=== PATIENT | female | born 1990 | race Caucasian/White ===

== ENCOUNTER 2019-01-24 17:23 | Emergency (ER) | payer MEDICAID ==
[~2019-01-24] VITALS: Ht 162.6 cm; Wt 65.0 kg
[~2019-01-24 17:23] MED LIST: COM10T PO; IBUP-1984 PO
[2019-01-24 17:30] VITALS: BP 136/80
== END 2019-01-24 17:59 | disposition home or self-care (01) ==
LOC: ER 17:25
DX: O26.891 Other specified pregnancy related conditions, first trimester (principal); M79.672 Pain in left foot; F15.90 Other stimulant use, unspecified, uncomplicated; Z98.890 Other specified postprocedural states; Z79.899 Other long term (current) drug therapy; Z3A.13 13 weeks gestation of pregnancy
CPT/HCPCS: 99282

== ENCOUNTER → 2024-03-08 | Outpatient (CLI) | payer MEDICAID | END | disposition home or self-care (01) | LOC: RAD 15:54 | PROVIDERS: ATTEND Family Medicine | DX: M25.531 Pain in right wrist (principal) | CPT/HCPCS: 73110 ==